=== PATIENT | male | born 1960 | race Caucasian/White ===

== ENCOUNTER 2017-07-01 08:55 | Emergency (ER) | payer OTHER ==
[2017-07-01] MEDS ORDERED: Benzonatate 100 MG CAP ONE (09:22)
== END 2017-07-01 09:46 | disposition home or self-care (01) ==
LOC: BURERS 08:55
DX: J11.1 Influenza due to unidentified influenza virus with other respiratory manifestations (principal); E11.9 Type 2 diabetes mellitus without complications; E78.5 Hyperlipidemia, unspecified; I10 Essential (primary) hypertension; Z87.442 Personal history of urinary calculi
CPT/HCPCS: 87804; 99284